=== PATIENT | male | born 1970 | race Caucasian/White ===

== ENCOUNTER 2017-07-23 19:35 | Inpatient (IN) | payer OTHER ==
[~2017-07-23] VITALS: Ht 182.9 cm; Wt 113.4 kg
[2017-07-23] MEDS ORDERED: ALTACE5 M2 PO (19:54)
--- NOTE | 2017-07-23 20:12 | ED GENERAL ADULT ---
History of Present Illness General Chief Complaint: General Adult Stated Complaint: PT WAS SIB DR FOR HIGH BLOOD PRESSURE Source: patient Exam Limitations: no limitations Vital Signs & Intake/Output Vital Signs & Intake/Output Vital Signs Date Time Temp Pulse Resp B/P B/P Pulse O2 O2 Flow FiO2 Mean Ox Delivery Rate 07/26 1136 69 170/120 07/26 0859 76 180/120 07/26 0859 76 180/120 07/26 0642 97.7 76 20 180/120 96 Room Air 07/25 2150 98.1 71 18 172/110 96 Room Air 07/25 2055 70 172/110 07/25 1800 190/122 07/25 1619 70 210/130 07/25 1429 98.1 74 18 170/110 95 Room Air 07/25 1308 174/104 ED Intake and Output 07/26 0000 07/25 1200 Intake Total 600 110 Output Total Balance 600 110 Intake, IV 10 Intake, Oral 600 100 Patient 113.398 kg Weight Allergies Coded Allergies: No Known Allergies (07/23/17) Reconcile Medications Labetalol HCl 300 MG TABLET 1 TAB PO BID HYPERTENSION Lisinopril 40 MG TABLET 1 TAB PO DAILY HTN Ramipril (Altace) 5 MG CAPSULE 1 CAP PO DAILY HTN (Reported) Triage Note: PER PT WENT TO WALK IN FOR A CUT AND BP WAS TOO HIGH, HX OF HTN BUT HAS NOT TAKEN MEDS IN 6 MONTHS SINCE COMING TO [facility]. CUT RT INDEX FINGER AT WORK, ON SLICER. BLEEDING CONTROILLED Triage Nurses Notes Reviewed? yes HPI: 46M PMH HTN (non-compliant with meds for 1.5 years), went to urgent care today after he cut his finger at work receiving 7 sutures, was sent here after found to have BP >200/100. BP in triage was 263/130. Patient is completely asymptomatic and feels well. He denies lightheadedness, headache, dizziness, vision changes, hearing changes, sore throat, chest pain, SOB, palpitations, diarrhea, dysuria, anuria, diarrhea. He has no cardiac history and has an active job. Past History Travel History Traveled to [place] past 21 day No Medical History Any Pertinent Medical History? see below for history Neurological: NONE EENT: NONE Cardiovascular: hypertension Respiratory: NONE Gastrointestinal: NONE Hepatic: NONE Renal: NONE Musculoskeletal: NONE Psychiatric: NONE Endocrine: NONE Surgical History Surgical History: non-contributory Psychosocial History What is your primary language Ukrainian Tobacco Use: Never used Family History Hx Contributory? No Review of Systems Review of Systems Constitutional: Reports: no symptoms. EENTM: Reports: no symptoms. Respiratory: Reports: no symptoms. Cardiovascular: Reports: no symptoms. GI: Reports: no symptoms. Genitourinary: Reports: no symptoms. Musculoskeletal: Reports: no symptoms. Skin: Reports: no symptoms. Neurological/Psychological: Reports: no symptoms. Hematologic/Endocrine: Reports: no symptoms. Immunologic/Allergic: Reports: no symptoms. All Other Systems: Reviewed and Negative Physical Exam Physical Exam General Appearance: well developed/nourished, no apparent distress Head: atraumatic, normal appearance Eyes: Bilateral: normal appearance. Ears, Nose, Throat: normal pharynx, normal ENT inspection, hearing grossly normal Neck: normal inspection, supple, full range of motion Respiratory: normal breath sounds, chest non-tender, no respiratory distress Cardiovascular: regular rate/rhythm Gastrointestinal: soft, non-tender Back: normal inspection, normal range of motion Extremities: normal inspection, normal range of motion Neurologic/Psych: awake, alert, oriented x 3, normal mood/affect Skin: intact, normal color, warm/dry Core Measures ACS in differential dx? No CVA/TIA Diagnosis: No Sepsis Present: No Sepsis Focused Exam Completed? No Progress Differential Diagnoses I considered the following diagnoses in my evaluation of the patient: hypertensive urgency/emergency/crisis, scleroderma renal crisis, ACS, stroke, aneurysm, dissection, pheochromocytoma. Plan of Care: Orders Procedure Date/time Status Change service to 07/26 0814 Active Vital Signs 07/25 183 Active Teach/Educate 07/25 183 Active Pain Treatment and Response 07/25 183 Active Nutritional Intake, Monitor 07/25 183 Active Isolation 07/25 183 Active Intake & Output 07/25 183 Active Patient Care Conference 07/25 183 Active Activity/Ambulation 07/25 183 Active Admit to inpatient 07/25 1556 Active Current Medications Sig/Afshin Start time Last Medication Dose Stop Time Status Admin Lisinopril 40 MG DAILY 07/26 1000 AC 07/26 (Prinivil) 0859 Labetalol HCl 300 MG BID 07/25 2200 AC 07/26 (Trandate) 0859 Enoxaparin Sodium 40 MG DAILY 07/24 1000 AC 07/26 (Lovenox) 0900 Initial ED EKG: normal sinus rhythm, no ST T wave changes Departure Departure Disposition: STILL A PATIENT Condition: Stable Clinical Impression Primary Impression: Hypertensive urgency Referrals: Patient Has No Primary Care Dr (PCP/Family) Departure Forms: Customer Survey General Discharge Information Industrial Accident Report Prescriptions: Current Visit Scripts Lisinopril 1 TAB PO DAILY #30 TAB Labetalol HCl 1 TAB PO BID #60 TAB Observation Note Spoke With: Joon COSME,Ovidio Physician Advisor Notified: CHRISTIANO COSME,LUIS Quan Place Patient In: Non-ED OBS Care Area Rationale for Observation: My rational for observation is as follows hypertensive urgency 260/140 with concern for stroke, resistant to Labetalol IV x2. Will bring in as observation for cardiology consult, IV anti-hypertensives, and slow regulation of BP that should resolve within 23 hours.. Critical Care Note Critical Care Note Critical Care Time: 30-74 min
[2017-07-23 20:26] LABS: ABSOLUTE BASOPHIL COUNT 0 /CUMM (0.0-0.2); ABSOLUTE EOSINOPHIL COUNT 0.2 /CUMM (0.0-0.7); ABSOLUTE GRANULOCYTE CT 5.8 /CUMM (1.4-6.5); ABSOLUTE LYMPH COUNT 2.2 /CUMM (1.2-3.4); ABSOLUTE MONOCYTE COUNT 0.7 /CUMM (0.10-0.60); BASOPHIL % 0.4 % (0.0-2.0); EOSINOPHIL % 2.5 % (0-5); GRANULOCYTE % 65.3 % (42.2-75.2); HEMATOCRIT 47.2 % (42-52); MEAN CORPUSCULAR HGB 28.7 PG (27.0-31.0); MEAN CORPUSCULAR HGB CONC 34.3 G/DL (33.0-37.0); MEAN CORPUSCULAR VOLUME 83.6 FL (80.0-94.0); MEAN PLATELET VOLUME 10.1 FL (7.4-10.4); PLATELET COUNT 191 /CUMM (130-400); RBC DISTRIBUTION WIDTH 14.1 % (11.5-14.5); RED BLOOD CELL CT 5.64 /CUMM (4.70-6.10); WHITE BLOOD CELL COUNT 8.9 /CUMM (4.8-10.8)
--- NOTE | 2017-07-23 22:12 | History & Physical ---
Damien Pena MD 07/23/17 2211: General Information and HPI MD Statement: I have seen and personally examined LUPILLO ESCALERA and documented this H&P. The patient is a 46 year old M who presented with a patient stated chief complaint of [hypertensive urgency]. Source of Information: patient Exam Limitations: no limitations History of Present Illness: Patient is a 46-year-old male with a PMH significant for hypertension but has been off of medication ramipril and Allopurinol (questionable reason) since immigrating to the over one year ago from [facility]. Patient presents to the ED today being referred by urgent care for hypertension. Patient suffered a laceration of his right second digit of his hand at work today and upon presentation to urgent care and was found to be in hypertensive urgency. Patient states that he felt in his usual state of health. He denies any headache, visual changes, eye pain, lightheadedness, dizziness, or loss of consciousness, chest pain, palpitations, nausea, vomiting, numbness, tingling, abdominal pain. Allergies/Medications Allergies: Coded Allergies: No Known Allergies (07/23/17) Home Med list Labetalol HCl 300 MG TABLET 1 TAB PO BID HYPERTENSION Lisinopril 40 MG TABLET 1 TAB PO DAILY HTN Ramipril (Altace) 5 MG CAPSULE 1 CAP PO DAILY HTN (Reported) Past History Travel History Traveled to [place] past 21 day No Medical History Neurological: NONE EENT: NONE Cardiovascular: hypertension Respiratory: NONE Gastrointestinal: NONE Hepatic: NONE Renal: NONE Musculoskeletal: NONE Psychiatric: NONE Endocrine: NONE Surgical History Surgical History: non-contributory Past Family/Social History Family History Relations & Conditions if any FATHER FH: HTN (hypertension) FH: [place] (myocardial infarction), Onset: 50-60. Psychosocial History Where do you live? Home Who Do You Live With? self Services at Home: None Primary Language: Persian Smoking Status: Never Smoked ETOH Use: occasional use Illicit Drug Use: denies illicit drug use Functional Ability ADLs Independent: dressing, eating, toileting, bathing. Ambulation: independent IADLs Independent: shopping, housework, finances, food prep, telephone, transportation , medication admin. Review of Systems Review of Systems Constitutional: Denies: chills, diaphoresis, fever, malaise. EENTM: Denies: blurred vision, double vision, visual changes, eye pain. Cardiovascular: Denies: chest pain, edema, orthopena, palpitations, syncope. Respiratory: Denies: cough, hemoptysis, orthopnea, short of breath, wheezing. GI: Denies: abdominal pain, constipation, diarrhea, melena, nausea, bloody stool, vomiting. Genitourinary: Reports: no symptoms. Musculoskeletal: Reports: no symptoms. Skin: Denies: rash. Exam & Diagnostic Data Last 24 Hrs of Vital Signs/I&O Vital Signs Date Time Temp Pulse Resp B/P B/P Pulse O2 O2 Flow FiO2 Mean Ox Delivery Rate 07/24 0114 74 164/106 07/24 0032 97.6 79 20 210/132 96 Room Air 07/24 0011 97.9 77 18 184/100 98 Room Air 07/23 2313 98.4 82 18 204/124 07/23 2256 98.4 82 18 204124 98 Room Air 07/23 2152 98.0 89 20 234/148 07/23 2149 98.0 89 20 234/148 98 Room Air 07/23 2038 98.4 101 20 234/150 07/23 2038 98.4 101 20 234/150 07/23 2017 262/134 07/23 1947 98.0 78 22 210/108 98 Intake & Output 07/24 0800 07/24 0000 07/23 1600 Intake Total 0 Output Total Balance 0 Intake, Oral 0 Patient 250 lb 250 lb Weight Physical Exam General Appearance Alert, Oriented X3, Cooperative, No Acute Distress Skin Temp/Moisture Exam: Warm/Dry HEENT Atraumatic, PERRLA, EOMI, Mucous Membr. moist/pink Neck No JVD, +2 Carotid Pulse wo Bruit Cardiovascular Regular Rate, Normal S1, Normal S2 Lungs Clear to Auscultation, Normal Air Movement Abdomen Normal Bowel Sounds, Soft, No Tenderness Neurological Normal Speech, Strength at 5/5 X4 Ext, Normal Tone, Sensation Intact, Cranial Nerves 3-12 NL Extremities No Clubbing, No Cyanosis, 1-2+ pitting edema of the distal LEs bilaterally Vascular Normal Pulses, Pulses Symmetrical Last 24 Hrs of Labs/Delfino: Laboratory Tests 07/24/17 0325: Troponin I Pending 07/24/17324: Sodium Pending, Potassium Pending, Chloride Pending, Carbon Dioxide Pending, Anion Gap Pending, BUN Pending, Creatinine Pending, BUN/Creatinine Ratio Pending , D-Dimer High Sensitivty Pending, CBC w Diff Pending, WBC Pending, RBC Pending, Hgb Pending, Hct Pending, MCV Pending, MCH Pending, MCHC Pending, RDW Pending, Plt Count Pending, MPV Pending 07/23/172009: Anion Gap 12, Estimated GFR > 60, BUN/Creatinine Ratio 13.3, Glucose 165 H, Hemoglobin A1c Pending, Calcium 10.2, Total Bilirubin 0.6, Direct Bilirubin 0.3, AST 25, ALT 48, Alkaline Phosphatase 61, Troponin I 0.02, Total Protein 7.3, Albumin 4.5, Triglycerides 322 H, Cholesterol 202 H, LDL Cholesterol, Calc 100 , HDL Cholesterol 38 L, Cholesterol/HDL Ratio 5 H, Amylase 50, Lipase 155, TSH 2.290, Free T4 1.41, CBC w Diff NO MAN DIFF REQ, RBC 5.64, MCV 83.6, MCH 28.7, MCHC 34.3, RDW 14.1, MPV 10.1, Gran % 65.3, Lymphocytes % 24.2, Monocytes % 7.6, Eosinophils % 2.5, Basophils % 0.4, Absolute Granulocytes 5.8, Absolute Lymphocytes 2.2, Absolute Monocytes 0.7 H, Absolute Eosinophils 0.2, Absolute Basophils 0 Diagnostic Data EKG Results RBBB, S1Q3T3, questionable ST depressions in the precordial leads Assessment/Plan Assessment: Patient is a 46-year-old male with a PMH significant for hypertension but has been off of medication for over a year, was on ramipril previously. 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 Patient received labetalol 300 mg by mouth, labetalol 10 mg IV 2 and enalaprilat 1.25 mg IV in the ED. Problem list #Hypertensive urgency Plan -Placed in observation on telemetry. -continuous telemetry monitoring -Rule out ACS with serial troponins and EKGs -Cardiology consult in the morning -Give referral for PCP prior to discharge -Start lisinopril 10 mg by mouth daily, labetalol 200 mg twice a day -Maintain goal BP of 170-180/100-110, over the first several hours of BP management -Heart healthy diet -DVT prophylaxis: Lovenox,ALPS -CODE STATUS: Full code As Ranked By This Provider Problem List: 1. Hypertensive urgency Core Measures/Misc (02/14) Acute Coronary Syndrome ACS Diagnosis: No Congestive Heart Failure Congestive Heart Failure Diagnosis No Cerebrovascular Accident CVA/TIA Diagnosis: No VTE (View Protocol) VTE Risk Factors Age>40 No Mechanical VTE Prophylaxis d/t N/A MechProphylax Ordered No VTE Pharm Prophylaxis d/t NA PharmProphylax ordered Sepsis (View protocol) Sepsis Present: No Fern Bal 07/23/17 7512: Resident Review Statement Resident Statement: examined this patient, discussed with editing internship, agreed with editing internship, reviewed images Other Findings: is a 46 yo man with PMHx. of HTN, and Gout presented to ED after he was seen at a walk in clinic for finger injury s/p 7 sutures, found to have elevated BP so referred to our ED for more evaluation. At Walk in clinic his BP> 200/100 mmgh, at our triage it was 260/130mmgh, he is completely asymptomatic except for mild pain in the injured finger. He was diagnosed with HTN at [facility], he was on ACEI but stopped taking his medicine since he came in to [place] about 1.5 years ago. At ED he was given Labetalol 300mg PO once and 20mg IV, he also received Enalaprite 1.25 iV once with still elevated BP. Will admitt the patient under observation at telemetry for hypertensive urgency, will manage his BP with oral Labetalol and oral CCB, aim to decrease BP not more than 25% within the first 24 hours. given his young age will order doppler US to r/o renal artery stenosis ( He mentioned that he had an US of the kidney at [facility] with no abnormalities detected). No needs to check Metanephrine as his clinical picture does not correlate with Pheochromocytoma. His EKG showed Sins tachy, with left ventricular hypertrophy, RBBB, LAD and what seems to be ST depression at anterolateral leads, he denies any chest pain, will repeat Troponin and EKG at 3am, we will also place a cardiology consult at am. DVT ppx SC Lovenox Full code Joon COSME, [facility] 07/24/17 0324: Attending MD Review Statement Attending Statement Attending MD Statement: examined this patient, discuss w/resident/PA/ECHOCARDIOGRAPHY TECH, agreed w/resident/PA/ECHOCARDIOGRAPHY TECH, reviewed images, amended to note Attending Assessment/Plan: 46 yo M who moved to [facility] from [place] about 1.5 years ago, has a h/o HTN but has not been taking any medications for past 1.5 years and has not established care with a PCP yet, is here for evalaution of elevated BP. He went to an Urgent care today after he cut his finger at work receiving 7 sutures and was sent to the ER as his BP was >200/100. He is asymptomatic, denies headache, vision changes, chest pain, palpitations, dyspnea or lightheadedness. He was previously on ramipril and allopurinol that were prescribed to him in [place]. He has undergone a stress test then that was negative. No cardiac history. He does not smoke, occasionally uses alcohol, denies drug use. His father is from an acute MD at age 56. He received labetalol 300 mg PO, IV labetalol 10 mg x 2 and Vasotec 1.25 mg once in the ER, BP slowly trending down 234/148 --> 204/124 -->184/100. Exam as above. Labs: troponin negative, glucose 165. EKG: sinus tachycardia, RBBB, LVH, Qtc 493 (no old EKG). Assessment and plan: 1. Hypertensive urgency - asymptomatic 2. Medication noncompliance 3. EKG with RBBB and nonspecific changes 4. Right hand index finger laceration s/p suture - 23 hour observation on Telemetry - Goal reduction if mean arterial pressure by 25% SBP ~ 170-180's - Initiate labetolol 200 BID and lisinopril 10 mg daily in AM - Serial EKG and troponin to rule out ACS - Obtain Echo and Cardio consult - Check lipid panel, TSH, free T4, HbA1c - Renal doppler to rule out MIRA - Referral to PCP upon discharge - Outpatient follow up for right hand index finger stitch removal in 7-10 days. - Emphasize importance of medication compliance DVT ppx Lovenox. Full code Observation Initial Note - I have personally examined LUPILLO ESCALERA on 07/24/17 at 0324. The disposition of LUPILLO ESCALERA is uncertain at this time and before a determination can be made, he requires a period of observation for the following reasons [Hypertensive urgency]
[2017-07-24] VITALS (7 sets, daily range): BP systolic 150–210; BP diastolic 100–132
[2017-07-24 03:38] LABS: ABSOLUTE BASOPHIL COUNT 0 /CUMM (0.0-0.2); ABSOLUTE EOSINOPHIL COUNT 0.2 /CUMM (0.0-0.7); ABSOLUTE GRANULOCYTE CT 6.1 /CUMM (1.4-6.5); ABSOLUTE LYMPH COUNT 2.4 /CUMM (1.2-3.4); ABSOLUTE MONOCYTE COUNT 0.7 /CUMM (0.10-0.60); BASOPHIL % 0.3 % (0.0-2.0); EOSINOPHIL % 2.1 % (0-5); GRANULOCYTE % 64.6 % (42.2-75.2); HEMATOCRIT 44.1 % (42-52); MEAN CORPUSCULAR HGB 28.3 PG (27.0-31.0); MEAN CORPUSCULAR HGB CONC 33.6 G/DL (33.0-37.0); MEAN CORPUSCULAR VOLUME 84.3 FL (80.0-94.0); MEAN PLATELET VOLUME 9.6 FL (7.4-10.4); PLATELET COUNT 184 /CUMM (130-400); RBC DISTRIBUTION WIDTH 14.5 % (11.5-14.5); RED BLOOD CELL CT 5.23 /CUMM (4.70-6.10); WHITE BLOOD CELL COUNT 9.4 /CUMM (4.8-10.8)
--- NOTE | 2017-07-24 12:51 | Cons- Cardiology ---
General Information and HPI Consulting Request Date of Consult: 07/24/17 Requested By: Joon COSME,Ovidio Reason for Consult: Hypertensive urgency Source of Information: patient, old records Exam Limitations: no limitations History of Present Illness: The patient is a very nice 46-year-old male. His past medical history significant for hypertension. He was previously treated with [place], however, since immigrating to the [place] one year ago from [place], the patient has been off of the medications. The patient presented to the emergency room yesterday after being referred by urgent care for hypertension which was identified after the patient arrived for treatment of a laceration of his right second digit while at work. At the urgent care Center he was noted to be markedly hypertensive. He denied any cardiovascular symptoms. The patient was made for treatment of his high blood pressure and further evaluation. Allergies/Medications Allergies: Coded Allergies: No Known Allergies (07/23/17) Home Med List: Ramipril (Altace) 5 MG CAPSULE 1 CAP PO DAILY HTN (Reported) Current Medications: Current Medications Sig/Afshin Start time Last Medication Dose Route Stop Time Status Admin Aspirin 325 MG ONCE ONE 07/24 0445 DC 07/24 PO 07/24 0446 0456 Enalaprilat 1.25 MG ONCE ONE 07/235 DC 07/23 IV 07/23 2315 2313 Enalaprilat 0 .STK-MED ONE 07/23 2311 DC IV Enoxaparin Sodium 40 MG DAILY 07/24 1000 AC 07/24 SC 0912 Influenza Virus 0.5 ML ONCE ONE 07/24 0045 DC Vaccine IM 07/24 0046 Labetalol HCl 200 MG BID 07/24 1000 AC 07/24 PO 0911 Labetalol HCl 10 MG ONCE ONE 07/23 214 DC 07/23 IV 07/23 2145 215 Labetalol HCl 0 .STK-MED ONE 07/23 2034 DC IV Labetalol HCl 10 MG ONCE ONE 07/23 2029 DC 07/23 IV 07/23 Labetalol HCl 300 MG ONCE ONE 07/23 1999 DC 07/23 PO 07/23 Lisinopril 10 MG DAILY 07/24 1000 AC 07/24 PO 0912 Sodium Chloride 250 ML BOLUS ONE 07/24 0445 DC 07/24 IV 07/24 0714 0456 Past History Travel History Traveled to [place] past 21 day No Medical History Blood Transfusion Hx: No Neurological: NONE EENT: NONE Cardiovascular: hypertension Respiratory: NONE Gastrointestinal: NONE Hepatic: NONE Renal: NONE Musculoskeletal: NONE Psychiatric: NONE Endocrine: NONE Cancer(s): NONE Surgical History Surgical History: non-contributory Family History Relations & Conditions If Any: FATHER FH: HTN (hypertension) FH: [place] (myocardial infarction), Onset: 50-60. Psychosocial History Where Do You Live? Home Who Do You Live With? self Services at Home: None Primary Language: Uzbek Smoking Status: Never Smoked ETOH Use: occasional use Illicit Drug Use: denies illicit drug use Functional Ability ADLs Independent: dressing, eating, toileting, bathing. Ambulation: independent IADLs Independent: shopping, housework, finances, food prep, telephone, transportation , medication admin. Exam & Diagnostic Data Vital Signs and I&O Vital Signs Date Time Temp Pulse Resp B/P B/P Pulse O2 O2 Flow FiO2 Mean Ox Delivery Rate 07/24 1040 180/118 07/24 0912 78 190/118 07/24 0911 78 190/118 07/24 0654 97.8 79 20 152/100 97 Room Air 07/24 0315 77 150/100 07/24 0114 74 164/106 07/24 0032 97.6 79 20 210/132 96 Room Air 07/24 0011 97.9 77 18 184/100 98 Room Air 07/23 2313 98.4 82 18 204/124 07/23 2255 98.4 82 18 204/124 98 Room Air 07/23 2152 98.0 89 20 234/148 07/23 2149 98.0 89 20 234/148 98 Room Air 07/23 2038 98.4 101 20 234/150 07/23 2038 98.4 101 20 234/150 07/23 2018 262/134 07/23 1947 98.0 78 22 210/108 98 Intake & Output 07/24 1600 07/24 0800 07/24 0000 07/23 1600 07/23 0000 Intake Total 350 0 Output Total 0 Balance 350 0 Intake, IV 250 Intake, Oral 100 0 Output, Urine 0 Patient 250 lb 250 lb Weight Physical Exam: General Appearance Alert, Oriented X3, Cooperative, No Acute Distress Skin Temp/Moisture Exam: Warm/Dry HEENT Atraumatic, PERRLA, EOMI, Mucous Membr. moist/pink Neck No JVD, +2 Carotid Pulse wo Bruit, supple Cardiovascular Regular Rate, Normal S1, Normal S2, soft S4, 1/6 systolic murmur Lungs Clear to Auscultation, and percussion bilaterally Abdomen Normal Bowel Sounds, Soft, No Tenderness Neurological Normal/nonfocal Extremities No Clubbing, No Cyanosis, 1-2+ pitting edema of the distal LEs bilaterally Vascular Normal Pulses, Pulses Symmetrical Labs/Delfino Results: Laboratory Tests 07/24 07/24 0325 0325 Chemistry Sodium (137 - 145 mmol/L) 141 Potassium (3.5 - 5.1 mmol/L) 4.1 Chloride (98 - 107 mmol/L) 104 Carbon Dioxide (22 - 30 mmol/L) 26 Anion Gap (5 - 16) 11 BUN (9 - 20 mg/dL) 15 Creatinine (0.7 - 1.2 mg/dL) 1.1 Estimated GFR (>60 ml/min) > 60 BUN/Creatinine Ratio (7 - 25 %) 13.6 Troponin I (<0.11 ng/ml) 0.03 Coagulation D-Dimer High Sensitivty (0 - 243 ng/ml) < 200 Hematology CBC w Diff NO MAN DIFF REQ WBC (4.8 - 10.8 /CUMM) 9.4 RBC (4.70 - 6.10 /CUMM) 5.23 Hgb (14.0 - 18.0 G/DL) 14.8 Hct (42 - 52 %) 44.1 MCV (80.0 - 94.0 FL) 84.3 MCH (27.0 - 31.0 PG) 28.3 MCHC (33.0 - 37.0 G/DL) 33.6 RDW (11.5 - 14.5 %) 14.5 Plt Count (130 - 400 /CUMM) 184 MPV (7.4 - 10.4 FL) 9.6 Gran % (42.2 - 75.2 %) 64.6 Lymphocytes % (20.5 - 51.1 %) 25.2 Monocytes % (1.7 - 9.3 %) 7.8 Eosinophils % (0 - 5 %) 2.1 Basophils % (0.0 - 2.0 %) 0.3 Absolute Granulocytes (1.4 - 6.5 /CUMM) 6.1 Absolute Lymphocytes (1.2 - 3.4 /CUMM) 2.4 Absolute Monocytes (0.10 - 0.60 /CUMM) 0.7 H Absolute Eosinophils (0.0 - 0.7 /CUMM) 0.2 Absolute Basophils (0.0 - 0.2 /CUMM) 0 07/23 2009 Chemistry Sodium (137 - 145 mmol/L) 142 Potassium (3.5 - 5.1 mmol/L) 4.1 Chloride (98 - 107 mmol/L) 102 Carbon Dioxide (22 - 30 mmol/L) 28 Anion Gap (5 - 16) 12 BUN (9 - 20 mg/dL) 16 Creatinine (0.7 - 1.2 mg/dL) 1.2 Estimated GFR (>60 ml/min) > 60 BUN/Creatinine Ratio (7 - 25 %) 13.3 Glucose (65 - 99 mg/dL) 165 H Hemoglobin A1c (4.2 - 5.8 %) Pending Calcium (8.4 - 10.2 mg/dL) 10.2 Total Bilirubin (0.2 - 1.3 mg/dL) 0.6 Direct Bilirubin (< 0.4 mg/dL) 0.3 AST (17 - 59 U/L) 25 ALT (21 - 72 U/L) 48 Alkaline Phosphatase (< 127 U/L) 61 Troponin I (<0.11 ng/ml) 0.02 Total Protein (6.3 - 8.2 g/dL) 7.3 Albumin (3.5 - 5.0 g/dL) 4.5 Triglycerides (<150 mg/dL) 322 H Cholesterol (< 200 MG/DL) 202 H LDL Cholesterol, Calc (65 - 129 mg/dL) 100 HDL Cholesterol (40 - 60 mg/dL) 38 L Cholesterol/HDL Ratio (0.00 - 4.88 %) 5 H Amylase (30 - 110 U/L) 50 Lipase (23 - 300 U/L) 155 TSH (0.270 - 4.200 uIU/mL) 2.290 Free T4 (0.64 - 1.79 ng/dL) 1.41 Hematology CBC w Diff NO MAN DIFF REQ WBC (4.8 - 10.8 /CUMM) 8.9 RBC (4.70 - 6.10 /CUMM) 5.64 Hgb (14.0 - 18.0 G/DL) 16.2 Hct (42 - 52 %) 47.2 MCV (80.0 - 94.0 FL) 83.6 MCH (27.0 - 31.0 PG) 28.7 MCHC (33.0 - 37.0 G/DL) 34.3 RDW (11.5 - 14.5 %) 14.1 Plt Count (130 - 400 /CUMM) 191 MPV (7.4 - 10.4 FL) 10.1 Gran % (42.2 - 75.2 %) 65.3 Lymphocytes % (20.5 - 51.1 %) 24.2 Monocytes % (1.7 - 9.3 %) 7.6 Eosinophils % (0 - 5 %) 2.5 Basophils % (0.0 - 2.0 %) 0.4 Absolute Granulocytes (1.4 - 6.5 /CUMM) 5.8 Absolute Lymphocytes (1.2 - 3.4 /CUMM) 2.2 Absolute Monocytes (0.10 - 0.60 /CUMM) 0.7 H Absolute Eosinophils (0.0 - 0.7 /CUMM) 0.2 Absolute Basophils (0.0 - 0.2 /CUMM) 0 Diagnostic Data EKG Results Normal sinus rhythm; left atrial under maladies; right bundle branch block; left Assessment/Plan Assessment/Plan Assessment: 1. Hypertensive urgency 2. Medication noncompliance 3. Mild hyperglycemia 4. Hyperlipidemia 5. Abnormal ECG with right bundle-branch block and nonspecific ST-T changes Recommendations: -Today, the patient's blood pressure remains significantly elevated but is improved since admission. His systolic pressure is ranging between 160-180. -For now, I would continue his current medications of labetalol 200 mg twice a day and lisinopril 10 mg daily. Continue to monitor blood pressure over the next 24 hours. -Reassess in the morning and readjust medications at that time if indicated. -Echocardiogram pending -Please check a fasting lipid profile. -At some point, the patient would benefit from further baseline cardiac evaluation as an outpatient. Consult Acknowledgment - Thank you for your consult request.
--- NOTE | 2017-07-24 14:11 | PN- Housestaff ---
Patrick COSME,[facility] 07/24/17 1411: Subjective Follow-up For: Hypertensive urgency Tele-Events Since Last Visit: Normal sinus rhythm with bundle branch block Heart rate 68 to 85. Subjective: Patient resting comfortably denies any chest pain, palpitations, headache, vision changes, numbness or weakness in any part of the body or lightheadedness/ dizziness. Review of Systems Constitutional: Reports: no symptoms. EENTM: Reports: no symptoms. Cardiovascular: Reports: no symptoms. Respiratory: Reports: no symptoms. Gastrointestinal: Reports: no symptoms. Genitourinary: Reports: no symptoms. Musculoskeletal: Reports: no symptoms. Skin: Reports: no symptoms. Neurological/Psychological: Reports: no symptoms. Hematologic/Endocrine: Reports: no symptoms. Immunologic/Allergic: Reports: no symptoms. Objective Last 24 Hrs of Vital Signs/I&O Vital Signs Date Time Temp Pulse Resp B/P B/P Pulse O2 O2 Flow FiO2 Mean Ox Delivery Rate 07/24 1420 97.6 70 20 190/100 93 Room Air 07/24 1040 180/118 07/24 0912 78 190/118 07/24 0911 78 190/118 07/24 0654 97.8 79 20 152/100 97 Room Air 07/24 0315 77 150/100 07/24 0114 74 164/106 07/24 0032 97.6 79 20 210/132 96 Room Air 07/24 0011 97.9 77 18 184/100 98 Room Air 07/23 2313 98.4 82 18 204/124 07/23 2256 98.4 82 18 204/124 98 Room Air 07/23 2152 98.0 89 20 234/148 07/23 2149 98.0 89 20 234/148 98 Room Air 07/23 2038 98.4 101 20 234/150 07/23 2038 98.4 101 20 234/150 07/23 2018 262/134 07/23 1947 98.0 78 22 210/108 98 Intake & Output 07/24 1600 07/24 0800 07/24 0000 Intake Total 400 350 0 Output Total 0 Balance 400 350 0 Intake, IV 250 Intake, Oral 400 100 0 Output, Urine 0 Patient 250 lb 250 lb Weight Physical Exam General Appearance: Alert, Oriented X3, Cooperative, No Acute Distress Skin: No Rashes, No Breakdown Cardiovascular: Regular Rate, Normal S1, Normal S2, No Murmurs Lungs: Clear to Auscultation, Normal Air Movement Abdomen: Normal Bowel Sounds, Soft, No Tenderness Extremities: No Clubbing, No Cyanosis, No Edema, Normal Pulses Current Medications: Current Medications Sig/Afshin Start time Last Medication Dose Route Stop Time Status Admin Aspirin 325 MG ONCE ONE 07/24 0445 DC 07/24 PO 07/24 0446 0456 Enalaprilat 1.25 MG ONCE ONE 07/23 2314 DC 07/23 IV 07/23 2315 231 Enalaprilat 0 .STK-MED ONE 07/23 2311 DC IV Enoxaparin Sodium 40 MG DAILY 07/24 1000 AC 07/24 SC 0912 Influenza Virus 0.5 ML ONCE ONE 07/24 0045 DC Vaccine IM 07/24 0046 Labetalol HCl 200 MG BID 07/24 1000 AC 07/24 PO 0911 Labetalol HCl 10 MG ONCE ONE 07/23 214 DC 07/23 IV 07/23 Labetalol HCl 0 .STK-MED ONE 07/23 2034 DC IV Labetalol HCl 10 MG ONCE ONE 07/23 2029 DC 07/23 IV 07/23 Labetalol HCl 300 MG ONCE ONE 07/23 1999 DC 07/23 PO 07/23 Lisinopril 10 MG DAILY 07/24 1000 AC 07/24 PO 0912 Sodium Chloride 250 ML BOLUS ONE 07/24 444 DC 07/24 IV 07/24 0714 0456 Last 24 Hrs of Lab/Delfino Results Last 24 Hrs of Labs/Mics: Laboratory Tests 07/24/175: Troponin I 0.03 07/24/17324: Anion Gap 11, Estimated GFR > 60, BUN/Creatinine Ratio 13.6, D-Dimer High Sensitivty < 200, CBC w Diff NO MAN DIFF REQ, RBC 5.23, MCV 84.3, MCH 28.3, MCHC 33.6, RDW 14.5, MPV 9.6, Gran % 64.6, Lymphocytes % 25.2, Monocytes % 7.8, Eosinophils % 2.1, Basophils % 0.3, Absolute Granulocytes 6.1, Absolute Lymphocytes 2.4, Absolute Monocytes 0.7 H, Absolute Eosinophils 0.2, Absolute Basophils 0 07/23/172009: Anion Gap 12, Estimated GFR > 60, BUN/Creatinine Ratio 13.3, Glucose 165 H, Hemoglobin A1c Pending, Calcium 10.2, Total Bilirubin 0.6, Direct Bilirubin 0.3, AST 25, ALT 48, Alkaline Phosphatase 61, Troponin I 0.02, Total Protein 7.3, Albumin 4.5, Triglycerides 322 H, Cholesterol 202 H, LDL Cholesterol, Calc 100 , HDL Cholesterol 38 L, Cholesterol/HDL Ratio 5 H, Amylase 50, Lipase 155, TSH 2.290, Free T4 1.41, CBC w Diff NO MAN DIFF REQ, RBC 5.64, MCV 83.6, MCH 28.7, MCHC 34.3, RDW 14.1, MPV 10.1, Gran % 65.3, Lymphocytes % 24.2, Monocytes % 7.6, Eosinophils % 2.5, Basophils % 0.4, Absolute Granulocytes 5.8, Absolute Lymphocytes 2.2, Absolute Monocytes 0.7 H, Absolute Eosinophils 0.2, Absolute Basophils 0 Assessment/Plan Assessment: Patient is a 46-year-old male with a PMH significant for hypertension but has been off of medication for over a year, was on ramipril previously. He was completely asymptomatic, and has not established medical care with a PCP or director labor standards in the [place]. Patient received labetalol 300 mg by mouth, labetalol 10 mg IV 2 and enalaprilat 1.25 mg IV in the ED. Was also given some fluids because of the rapid drop in blood pressure(150/100) after receiving all the medications. Problem list #Hypertensive urgency Plan - Continue to observe on telemetry. - Troponins and EKG 3 negative. - Cardiology consult; appreciate recommendations. - Continue lisinopril 10 mg by mouth daily, labetalol 200 mg twice a day - Maintain goal BP of 170-180/100-110, over the first several hours of BP management. - Renal Doppler ultrasound to rule out renal artery stenosis. - Echocardiogram pending - Abnormal lipid profile; will check fasting lipid panel in a.m. DVT prophylaxis: Lovenox,ALPS CODE STATUS: Full code Problem List: 1. Hypertensive urgency Pain Ratin Pain Location: None Pain Goal: Remain pain free Pain Plan: None Tomorrow's Labs & Rationales: Lipid panel Jatin Amezquita MD 07/24/17 1551: Attending MD Review Statement Attending Statement Attending MD Statement: examined this patient, discuss w/resident/PA/QA SOFTWARE TESTER, agreed w/resident/PA/QA SOFTWARE TESTER, reviewed EMR data (avail) Attending Assessment/Plan: 46 yo M who moved to [facility] from [place] about 1.5 years ago, has a h/o HTN but has not been taking any medications for past 1.5 years and has not established care with a PCP yet, is here for evalaution of elevated BP. He used to take medications in [place] for his high blood pressure.. This morning patient denies specific complaints of chest pain, shortness of breath, lightheadedness, dizziness. No headache. His blood pressure has been steadily declining, although it is still elevated. Assessment and plan: 1. Hypertensive urgency - resolving 2. Medication noncompliance 3. Right hand index finger laceration s/p suture 4. Right bundle branch block with Non specific ST-T changes Patient seen by cardiology will continue with lisinopril 10 mg in the same dose of labetalol. We will obtain echocardiogram. And also get fasting lipid profiles. Patient educated about the importance of following up with the primary care physician. No evidence of acute coronary syndrome. - Patient will need follow-up with primary care physician on discharge. - Outpatient follow up for right hand index finger stitch removal in 7-10 days. - Plan for discharge in the morning.
--- NOTE | 2017-07-24 16:03 | ULTRASOUND REPORT ---
EXAMINATION: US DOPPLER RENAL CLINICAL INFORMATION: Hypertensive urgency. Suspected renal artery stenosis. COMPARISON: None. TECHNIQUE: Real-time imaging of the kidneys and bladder. FINDINGS: The abdominal aorta shows no significant atherosclerotic disease. The pararenal abdominal aorta shows a peak systolic velocity of 98 cm/s. The peak systolic velocities within the proximal mid, distal renal arteries are as follows (centimeters per second): (Some considered increased peak systolic velocity of 180 cm/s as abnormal) Right renal artery: Proximal: 131; mid: 99; distal 92. Left renal artery: Proximal 100; mid 82; distal 89. Renal aortic ratio (RAR): 1.3 on the right and 1.0 on the left (Greater than 3-3.5 is usually considered abnormal) RIGHT KIDNEY: 10.9 x 5.3 x 5.4 cm (SAG x AP x TRV). The kidney is normal in size, contour, and echogenicity. Renal cortical thickness is normal. No calculi or focal parenchymal lesions. No hydronephrosis. LEFT KIDNEY: 12.4 x 5.0 x 4.8 cm (SAG x AP x TRV). The kidney is normal in size, contour, and echogenicity. Renal cortical thickness is normal. No calculi or focal parenchymal lesions. No hydronephrosis. IMPRESSION: No sonographic evidence of renal artery stenosis.
[2017-07-25 06:51] VITALS: BP 176/110
[2017-07-25] MEDS ORDERED: LABETALOL HCL200 M1 PO (07:05)
--- NOTE | 2017-07-25 07:08 | Patient Discharge Instructions ---
Discharge Instructions General Discharge Information You were seen/treated for: High blood pressure due to medication non complaince Watch for these problems: Please return to the ER in case of any chest pain, severe headaches, visual changes, slurred speech, or weakness/numbness in any part of body. Special Instructions: Please take all your medication as prescribed. Please take a low alt diet. Please follow up with your PCP, for further management of BP. Please keep a log of your blood pressure at home. Diet Continue normal diet: Yes Recommended Diet: Heart Healthy, Regular no added salt Activity Full Activity/No Limits: Yes Acute Coronary Syndrome Inclusion Criteria At DC or during hospital stay patient has or had the following: ACS DIAGNOSIS No Discharge Core Measures Meds if any: Prescribed or Continued at Discharge Meds if any: NOT Prescribed or Continued at Discharge Congestive Heart Failure Inclusion Criteria At DC or during hospital stay patient has or had the following: CHF DIAGNOSIS No Discharge Core Measures Meds if any: Prescribed or Continued at Discharge Meds if any: NOT Prescribed or Continued at Discharge Cerebrovascular accident Inclusion Criteria At DC or during hospital stay patient has or had the following: CVA/TIA Diagnosis No Discharge Core Measures Meds if any: Prescribed or Continued at Discharge Meds if any: NOT Prescribed or Continued at Discharge Venous thromboembolism Inclusion Criteria VTE Diagnosis No VTE Type NONE VTE Confirmed by (Test) NONE Discharge Core Measures - Per Current guidelines, there needs to be overlap - treatment for the first 5 days of Warfarin therapy. - If discharged on Warfarin prior to 5 days of - overlap therapy, the patient will need to be - assessed for post discharge needs including - *Post discharge parental anticoagulation - *Warfarin and/or parental anticoagulation education - *Follow up date to check INR post discharge At least 5 days overlap therapy as Inpatient No Meds if any: Prescribed or Continued at Discharge Note: Overlap Therapy is Warfarin and Anticoagulant Meds if any: NOT Prescribed or Continued at Discharge
--- NOTE | 2017-07-25 08:33 | PN-Observation ---
Observation Note Observation Note _ I have personally examined LUPILLO ESCALERA. him disposition is uncertain at this time. Before a determination can be made, he requires continued observation for the following reasons [Severely elevated blood pressure/hypertensive urgency ]. Assessment/Plan Medical Assessment: 46 yo M who moved to [facility] from [facility] about 1.5 years ago, has a h/o HTN but has not been taking any medications for past 1.5 years and has not established care with a PCP yet, is here for evalaution of elevated BP. He went to an Urgent care yesterday after he cut his finger at work receiving 7 sutures and was sent to the ER as his BP was >200/100. He was asymptomatic. Of note, he was previously on ramipril and allopurinol that were prescribed to him in [place]. He has undergone a stress test then that was reportedly negative. Since admission he has received labetalol 300 mg PO, IV labetalol 10 mg x 2 and Vasotec 1.25 mg once in the ER, BP slowly trending down. His EKGs and troponins were negative for an acute coronary event. And he has been reviewed by diesel crane operator Dr. Lovell. Doppler ultrasound for renal artery stenosis was negative. His blood pressure today is still elevated at 180/120 mmHg. We'll adjust his anti-hypertensive regimen and reassess him later today for possible discharge. Problems 1. Hypertensive urgency - asymptomatic 2. Medication noncompliance 3. EKG with RBBB and nonspecific changes 4. Right hand index finger laceration s/p suture Plan 1. Hypertensive urgency - asymptomatic * Increase by mouth lisinopril to 20 mg daily today * Continue by mouth labetalol 200 mg twice a day * Cardiology input appreciated * Awaiting echocardiogram report * Fasting lipid panel this morning is improved with LDL 105, but HDL is low at 33 * Recommend lifestyle modification for cholesterol * Follow-up hemoglobin A1c * A blood pressure is in acceptable range can discharge patient later today 2. Medication noncompliance * Patient has been counseled 3. EKG with RBBB and nonspecific changes * Cardiology input appreciated * Follow-up echocardiogram and follow-up with cardiology as outpatient for further evaluation 4. Right hand index finger laceration s/p suture * Follow-up with urgent care center for suture removal in 10 days time ADDENDUM at 15:37 on 07/25/17 Patients blood pressure remains elevated at 170/110 mmhg after increasing lisinopril to 20 mg daily. Case discussed with oil field caser Michel and Attending, Dr. Amezquita. Will convert patient to full admission and continue adjusting blood pressure medications for optimal control. Increase labetalol to 300 mg BID as per cardiology. Problem List: 1. Hypertensive urgency DVT/Prophylaxis: mechanical Subjective Follow-up For: Severely elevated blood pressure and hypertensive urgency Complaints: no complaints Tele-Events Since Last Visit: Sinus rhythm. Heart rate 60-80 bpm. First degree heart block with few PVCs. Subjective: The patient feels well today. He has no complaints. He denies chest pains, palpitations, shortness of breath or lightheadedness. He has no localized weakness or abnormal sensations. Review of Systems Constitutional: Denies: chills, fever, weakness. EENTM: Denies: blurred vision, double vision, throat pain. Cardiovascular: Denies: chest pain, edema, palpitations, syncope. Respiratory: Denies: cough, short of breath. Gastrointestinal: Denies: abdominal pain, diarrhea, changes in stool. Genitourinary: Denies: frequency, hematuria, hesitation. Objective Last 24 Hrs of Vital Signs/I&O Vital Signs Date Time Temp Pulse Resp B/P B/P Pulse O2 O2 Flow FiO2 Mean Ox Delivery Rate 07/25 0854 81 182/120 07/25 0854 81 182/120 07/25 0651 98.2 81 18 176/110 95 Room Air 07/24 2201 98.6 75 18 162/112 92 Room Air 07/24 2128 78 188/110 07/24 1420 97.6 70 20 190/100 93 Room Air 07/24 1040 180/118 Intake & Output 07/25 1600 07/25 0800 07/25 0000 Intake Total 110 680 Output Total Balance 110 680 Intake, IV 10 Intake, Oral 100 680 Physical Exam General Appearance: Alert, Oriented X3, Cooperative, No Acute Distress Skin: No Rashes Skin Temp/Moisture Exam: Warm/Dry Sepsis Skin Exam (color): Normal for Ethnicity HEENT: Atraumatic, PERRLA, EOMI, Mucous Membr. moist/pink Neck: Supple, No JVD, No thryomegaly Lymphatic: Cervical nl Cardiovascular: Regular Rate, Normal S1, Normal S2, No Murmurs Lungs: Clear to Auscultation, Normal Air Movement Abdomen: Normal Bowel Sounds, Soft, No Tenderness, No Hepatospenomegaly, No Masses Neurological: Normal Speech, Strength at 5/5 X4 Ext, Normal Tone, Sensation Intact, Cranial Nerves 3-12 NL Extremities: No Edema, Normal Pulses (dorsalis pedis) Current Medications: Current Medications Sig/Afshin Start time Last Medication Dose Route Stop Time Status Admin Enoxaparin Sodium 40 MG DAILY 07/24 1000 AC 07/25 SC 0855 Labetalol HCl 200 MG BID 07/24 1000 AC 07/25 PO 0854 Lisinopril 20 MG DAILY 07/26 1000 AC PO Lisinopril 10 MG ONCE ONE 07/25 1015 DC PO 07/25 1016 Lisinopril 10 MG DAILY 07/24 1000 DC 07/25 PO 0854 Last 24 Hrs of Labs/Mics: Laboratory Tests 07/25/17 0625: Triglycerides 114, Cholesterol 160, LDL Cholesterol, Calc 105, HDL Cholesterol 33 L, Cholesterol/HDL Ratio 5 H
--- NOTE | 2017-07-25 13:52 | PN- Att Addend ---
Attending Addendum Attending Brief Note 46 yo M who moved to [facility] from [place] about 1.5 years ago, has a h/o HTN but has not been taking any medications for past 1.5 years and has not established care with a PCP yet, is here for evalaution of elevated BP. He used to take lisinopril 5 mg once daily in [place] for his high blood pressure.. This morning patient denies specific complaints of chest pain, shortness of breath, lightheadedness, dizziness. No headache. His blood pressure has been steadily declining, although it is still elevated. Assessment and plan: 1. Hypertensive urgency - resolving 2. Medication noncompliance 3. Right hand index finger laceration s/p suture 4. Right bundle branch block with Non specific ST-T changes Patient seen by cardiology will increase the dose of lisinopril to 20 mg in the same dose of labetalol. Will consider addition of chlorthalidone. We'll follow up on results of echocardiogram. Patient educated about the importance of following up with the primary care physician. No evidence of acute coronary syndrome. - Patient will need follow-up with primary care physician on discharge. - Outpatient follow up for right hand index finger stitch removal in 7-10 days. - Plan for discharge possibly later today depending upon the trend in the blood pressure and will touch base with cardiology. Patient very eager to go home.
--- NOTE | 2017-07-25 14:08 | PN- Cardiology ---
Subjective Subjective: The patient is sleeping quietly. No new symptoms or issues. Rhythm stable. Blood pressure remains elevated though improved since admission. Objective Vital Signs and I&Os Vital Signs Date Time Temp Pulse Resp B/P B/P Pulse O2 O2 Flow FiO2 Mean Ox Delivery Rate 07/25 1308 174/104 07/25 0854 81 182/120 07/25 0854 81 182/120 07/25 0651 98.2 81 18 176/110 95 Room Air 07/24 2201 98.6 75 18 162/112 92 Room Air 07/24 2128 78 188/110 07/24 1420 97.6 70 20 190/100 93 Room Air Intake & Output 07/25 1600 07/25 0800 07/25 0000 07/24 1600 07/24 0800 07/24 0000 Intake Total 110 680 400 350 0 Output Total 0 Balance 110 680 400 350 0 Intake, IV 10 250 Intake, Oral 100 680 400 100 0 Output, Urine 0 Patient 250 lb 250 lb Weight Physical Exam: General Appearance Alert, Oriented X3, Cooperative, No Acute Distress Skin Temp/Moisture Exam: Warm/Dry HEENT Atraumatic, PERRLA, EOMI, Mucous Membr. moist/pink Neck No JVD, +2 Carotid Pulse wo Bruit, supple Cardiovascular Regular Rate, Normal S1, Normal S2, soft S4, 1/6 systolic murmur Lungs Clear to Auscultation, and percussion bilaterally Abdomen Normal Bowel Sounds, Soft, No Tenderness Neurological Normal/nonfocal Extremities No Clubbing, No Cyanosis, 1+ pitting edema of the distal LEs bilaterally Vascular Normal Pulses, Pulses Symmetrical Current Medications: Current Medications Sig/Afshin Start time Last Medication Dose Route Stop Time Status Admin Enoxaparin Sodium 40 MG DAILY 07/24 1000 AC 07/25 SC 0855 Labetalol HCl 200 MG BID 07/24 1000 AC 07/25 PO 0854 Lisinopril 20 MG DAILY 07/26 1000 AC PO Lisinopril 10 MG ONCE ONE 07/25 1015 DC 07/25 PO 07/25 1016 1308 Lisinopril 10 MG DAILY 07/24 1000 DC 07/25 PO 0854 Results Last 48 Hrs of Labs/Mics: Laboratory Tests 07/25/17 0625: Triglycerides 114, Cholesterol 160, LDL Cholesterol, Calc 105, HDL Cholesterol 33 L, Cholesterol/HDL Ratio 5 H 07/24/17 0325: Troponin I 0.03 07/24/175: Anion Gap 11, Estimated GFR > 60, BUN/Creatinine Ratio 13.6, D-Dimer High Sensitivty < 200, CBC w Diff NO MAN DIFF REQ, RBC 5.23, MCV 84.3, MCH 28.3, MCHC 33.6, RDW 14.5, MPV 9.6, Gran % 64.6, Lymphocytes % 25.2, Monocytes % 7.8, Eosinophils % 2.1, Basophils % 0.3, Absolute Granulocytes 6.1, Absolute Lymphocytes 2.4, Absolute Monocytes 0.7 H, Absolute Eosinophils 0.2, Absolute Basophils 0 07/23/172009: Anion Gap 12, Estimated GFR > 60, BUN/Creatinine Ratio 13.3, Glucose 165 H, Hemoglobin A1c Pending, Calcium 10.2, Total Bilirubin 0.6, Direct Bilirubin 0.3, AST 25, ALT 48, Alkaline Phosphatase 61, Troponin I 0.02, Total Protein 7.3, Albumin 4.5, Triglycerides 322 H, Cholesterol 202 H, LDL Cholesterol, Calc 100 , HDL Cholesterol 38 L, Cholesterol/HDL Ratio 5 H, Amylase 50, Lipase 155, TSH 2.290, Free T4 1.41, CBC w Diff NO MAN DIFF REQ, RBC 5.64, MCV 83.6, MCH 28.7, MCHC 34.3, RDW 14.1, MPV 10.1, Gran % 65.3, Lymphocytes % 24.2, Monocytes % 7.6, Eosinophils % 2.5, Basophils % 0.4, Absolute Granulocytes 5.8, Absolute Lymphocytes 2.2, Absolute Monocytes 0.7 H, Absolute Eosinophils 0.2, Absolute Basophils 0 Assessment/Plan Assessment/Plan Assessment: 1. Hypertensive urgency 2. Medication noncompliance 3. Mild hyperglycemia 4. Hyperlipidemia 5. Abnormal ECG with right bundle-branch block and nonspecific ST-T changes Recommendations: -Today, the patient's blood pressure remains significantly elevated but is improved since admission. His systolic pressure is ranging between 160-180. -For now, I would continue his current medications of labetalol 200 mg twice a day and lisinopril was increased to 20 mg daily this morning.. Continue to monitor blood pressure over the next 24 hours. -Reassess later this afternoon and, if necessary, consider increasing labetalol to 300 mg twice a day -Echocardiogram shows mild left ventricular hypertrophy with normal left ventricular function and no significant valvular heart disease. -Please check a fasting lipid profile. -At some point, the patient would benefit from further baseline cardiac evaluation as an outpatient. Continue telemetry? Yes
[2017-07-25 14:29] VITALS: BP 170/110
[2017-07-25 18:00] VITALS: BP 190/122
--- NOTE | 2017-07-25 18:37 | ECHOCARDIOGRAM REPORT ---
LUPILLO ESCALERA Age: 46 : 1970 Gender: M Exam Date: 07/25/2017 08:56 Exam Location: [place] Ht (in): 72 Wt (lb): 250 BSA: 2.44 BP: 176 / 110 Ordering Physician: Damien Pena MD Referring Physician: Milagros Lovell MD Technologist: Carrie Atkins [facility] Room Number: 174-01 Indications: HYPERTENSION Rhythm: Sinus Technical Quality: Fair FINDINGS Left Ventricle Normal size left ventricle. No obvious regional wall motion abnormalities. Left ventricular wall thickness increased. Normal left ventricular ejection fraction estimated at 55-60%. Right Ventricle Normal right ventricular size and function. Right Atrium Normal right atrial size. Left Atrium Mild left atrial dilatation. Mitral Valve Mild mitral regurgitation. Aortic Valve Trileaflet aortic valve. Focal thickening of the aortic valve cusps. No aortic stenosis. No aortic regurgitation. Tricuspid Valve Tricuspid valve not well visualized, grossly normal. Mild tricuspid regurgitation. Right ventricular systolic pressure estimated at 22 mmHg. Pulmonic Valve Structurally normal pulmonic valve. Pericardium No pericardial effusion. Great Vessels Normal size aortic root and proximal ascending aorta. CONCLUSIONS 1. This was a technically difficult study 2. Mild aortic sclerosis is present with no valvular stenosis or insufficiency. 3. Mild thickening of the mitral leaflets is present with mild mitral insufficiency and mild left atrial enlargement. 4. No significant pericardial fluid was detected on the study. 5. The left ventricular chamber size is normal with mild concentric hypertrophy and a normal ejection fraction with no resting wall motion abnormalities. 6. Right heart structures are grossly normal. Mild tricuspid insufficiency is present with no evidence of pulmonary hypertension. 7. No prior study was available for comparison. Milagros Lovell M.D. (Electronically Signed) Final Date: 25 July 2017 18:37 MEASUREMENTS (Male / Female) Normal Values 2D ECHO LV Diastolic Diameter PLAX 5.0 cm 4.2 - 5.9 / 3.9 - 5.3 cm LV Systolic Diameter PLAX 3.0 cm 2.1 - 4.0 cm LV Fractional Shortening PLAX 40.0 % 25 - 46 % LV Ejection Fraction 2D Teich 70.4 % IVS Diastolic Thickness 1.4 cm LVPW Diastolic Thickness 1.4 cm LV Relative Wall Thickness 0.6 RV Internal Dim ED PLAX 2.6 cm 1.9 - 3.8 cm LVOT Diameter 2.2 cm Aortic Root Diameter 3.1 cm LA Systolic Diameter LX 3.9 cm 3.0 - 4.0 / 2.7 - 3.8 cm LA Volume 57.0 cm 18 - 58 / 22 - 52 cm Ascending Aorta Diameter 3.6 cm DOPPLER AV Peak Velocity 124.0 cm/s AV Peak Gradient 6.2 mmHg AV Mean Velocity 92.9 cm/s AV Mean Gradient 4.0 mmHg AV Velocity Time Integral 26.3 cm LVOT Peak Velocity 116.0 cm/s LVOT Peak Gradient 5.4 mmHg LVOT Mean Velocity 83.2 cm/s LVOT Mean Gradient 3.0 mmHg LVOT Velocity Time Integral 23.0 cm LVOT Stroke Volume 87.4 cm AV Area Cont Eq vti 3.3 cm AV Area Cont Eq pk 3.6 cm MV Peak Velocity 106.0 cm/s MV Peak Gradient 4.5 mmHg MV Mean Velocity 68.8 cm/s MV Mean Gradient 2.0 mmHg Mitral E Point Velocity 96.3 cm/s Mitral A Point Velocity 93.8 cm/s Mitral E to A Ratio 1.0 MV PHT Velocity 113.0 cm/s MV Deceleration Gilmer 467.0 cm/s MV Pressure Half Time 72.6 ms MV Area PHT 3.0 cm MV Deceleration Time 182.0 ms TR Peak Velocity 202.0 cm/s TR Peak Gradient 16.3 mmHg Right Atrial Pressure 5.0 mmHg Pulmonary Artery Systolic Pressu 21.3 mmHg Right Ventricular Systolic Press 21.3 mmHg PV Peak Velocity 97.9 cm/s PV Peak Gradient 3.8 mmHg PV Mean Velocity 67.3 cm/s PV Mean Gradient 2.0 mmHg PV Velocity Time Integral 20.3 cm LV E' Lateral Velocity 8.9 cm/s Mitral E to LV E' Lateral Ratio 10.9 LV E' Septal Velocity 7.0 cm/s Mitral E to LV E' Septal Ratio 13.7
[2017-07-25 21:50] VITALS: BP 172/110
[2017-07-26 06:42] VITALS: BP 180/120
--- NOTE | 2017-07-26 07:12 | PN- Housestaff ---
Patrick COSME,[facility] 07/26/17 0712: Subjective Follow-up For: Hypertensive urgency Tele-Events Since Last Visit: Normal sinus rhythm Heart rate 60-75. Subjective: Patient lying comfortably in bed, denies any active complaints. Review of Systems Constitutional: Reports: no symptoms. EENTM: Reports: no symptoms. Cardiovascular: Reports: no symptoms. Respiratory: Reports: no symptoms. Gastrointestinal: Reports: no symptoms. Genitourinary: Reports: no symptoms. Musculoskeletal: Reports: no symptoms. Skin: Reports: no symptoms. Neurological/Psychological: Reports: no symptoms. Hematologic/Endocrine: Reports: no symptoms. Immunologic/Allergic: Reports: no symptoms. Objective Last 24 Hrs of Vital Signs/I&O Vital Signs Date Time Temp Pulse Resp B/P B/P Pulse O2 O2 Flow FiO2 Mean Ox Delivery Rate 07/26 1336 144/90 07/26 1336 97.7 74 18 142/86 96 Room Air 07/26 1136 69 170/120 07/26 0859 76 180/120 07/26 0859 76 180/120 07/26 0642 97.7 76 20 180/120 96 Room Air 07/25 2150 98.1 71 18 172/110 96 Room Air 07/25 2055 70 172/110 07/25 1800 190/122 07/25 1619 70 210/130 Intake & Output 07/26 1600 07/26 0800 07/26 0000 Intake Total 560 Output Total 600 Balance -40 Intake, IV 10 Intake, Oral 550 Output, Urine 600 Physical Exam General Appearance: Alert, Oriented X3, Cooperative Skin: No Rashes, No Breakdown Cardiovascular: Regular Rate, Normal S1, Normal S2 Lungs: Clear to Auscultation, Normal Air Movement Abdomen: Normal Bowel Sounds, Soft, No Tenderness Neurological: Normal Speech, Strength at 5/5 X4 Ext, Normal Tone, Sensation Intact, Cranial Nerves 3-12 NL Extremities: No Clubbing, No Cyanosis, No Edema, Normal Pulses Current Medications: Current Medications Sig/Afshin Start time Last Medication Dose Route Stop Time Status Admin Enoxaparin Sodium 40 MG DAILY 07/24 1000 DCD 07/26 SC 0900 Labetalol HCl 300 MG BID 07/25 2200 DCD 07/26 PO 0859 Labetalol HCl 100 MG ONCE ONE 07/25 1600 DC 07/25 PO 07/25 1601 1619 Labetalol HCl 200 MG BID 07/24 1000 DC 07/25 PO 0854 Lisinopril 20 MG DAILY 07/26 1000 DC PO Lisinopril 40 MG DAILY 07/26 1000 DCD 07/26 PO 0859 Assessment/Plan Assessment: Patient is a 46-year-old male with a PMH significant for hypertension but has been off of medication for over a year, was on ramipril previously. He was completely asymptomatic, and has not established medical care with a PCP or hospitality associate in the [place]. Problem list #Hypertensive urgency Plan -Labetalol was increased to 300 mg twice daily and lisinopril 20 mg daily yesterday evening because of continuously elevated blood pressure. - Blood pressure this morning was 184/120, lisinopril was further increased to 40 mg daily after which the blood pressure came down to 144/90. - Echocardiogram showed ejection fraction 55-60% with no regional wall motion abnormalities. - Patient will be discharged home on current antihypertensive medications with outpatient follow-up with cardiology. DVT prophylaxis: GISELA Gaffney CODE STATUS: Full code Problem List: 1. Hypertensive urgency Pain Ratin Pain Location: None Pain Goal: Remain pain free Pain Plan: None Tomorrow's Labs & Rationales: None Darian COSME,Marita 07/26/17 1151: Attending MD Review Statement Attending Statement Attending MD Statement: examined this patient, discuss w/resident/PA/COMMUNICATION TECHNICIAN, agreed w/resident/PA/COMMUNICATION TECHNICIAN, reviewed EMR data (avail), discussed with nursing, discussed with case mgmt, amended to note Attending Assessment/Plan: Patient seen and examined. Resting comfortably and not in acute distress. No issues overnight. 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 Blood pressure remains elevated particularly his diastolic pressures. He has no complaints this morning. On examination heart sounds are regular. Lungs are clear bilaterally. He has no peripheral edema. Lisinopril dose has been increased to 40 mg this morning. He is continued on labetalol 300 mg twice a day. We will recheck his blood pressure later on today. If his systolic blood pressure improves below 100 she will be discharged today with recommendations to follow-up with his primary care provider later on this week. blood pressure later on today. If his systolic blood pressure improves below 100 she will be discharged today with recommendations to follow-up with his primary care provider later on this week.
--- NOTE | 2017-07-26 11:11 | PN- Cardiology ---
Subjective Subjective: The patient reports that he is feeling well. No chest pain. No shortness of breath. No palpitations. No diaphoresis. Objective Vital Signs and I&Os Vital Signs Date Time Temp Pulse Resp B/P B/P Pulse O2 O2 Flow FiO2 Mean Ox Delivery Rate 07/26 0859 76 180/120 07/26 0859 76 180/120 07/26 0642 97.7 76 20 180/120 96 Room Air 07/25 2150 98.1 71 18 172/110 96 Room Air 07/25 2055 70 172/110 07/25 1800 190/122 07/25 1619 70 210/130 07/25 1429 98.1 74 18 170/110 95 Room Air 07/25 1308 174/104 Intake & Output 07/26 1600 07/26 0800 07/26 0000 07/25 1600 07/25 0000 Intake Total 600 110 680 Output Total Balance 600 110 680 Intake, IV 10 Intake, Oral 600 100 680 Patient 250 lb Weight Physical Exam: Gen: NAD HEENT: normal Lungs: clear to auscultation, normal resp. effort Heart: RRR, S1, S2, 1/6 systolic murmur Abdomen: Soft, nontender, no masses Extremities: No clubbing, cyanosis, or edema. Neuro: Alert and oriented x 3, cranial nerves intact Current Medications: Current Medications Sig/Afshin Start time Last Medication Dose Route Stop Time Status Admin Enoxaparin Sodium 40 MG DAILY 07/24 1000 AC 07/26 SC 0900 Labetalol HCl 300 MG BID 07/25 2200 AC 07/26 PO 0859 Labetalol HCl 100 MG ONCE ONE 07/25 1600 DC 07/25 PO 07/25 1601 1619 Labetalol HCl 200 MG BID 07/24 1000 DC 07/25 PO 0854 Lisinopril 20 MG DAILY 07/26 1000 DC PO Lisinopril 40 MG DAILY 07/26 1000 AC 07/26 PO 0859 Results Last 48 Hrs of Labs/Mics: Laboratory Tests 07/25/17 0625: Triglycerides 114, Cholesterol 160, LDL Cholesterol, Calc 105, HDL Cholesterol 33 L, Cholesterol/HDL Ratio 5 H Assessment/Plan Assessment/Plan Assessment: 1. Hypertensive urgency 2. Medication noncompliance 3. Mild hyperglycemia 4. Hyperlipidemia 5. Abnormal ECG with right bundle-branch block and nonspecific ST-T changes Plan: * Lisinopril increased to 40 mg daily with this morning's dose. * Continue labetalol. * Okay for discharge from cardiac standpoint later in the afternoon if stable * Follow up in the office with Dr. Lovell within 1 week per Continue telemetry? Yes
[2017-07-26] MEDS ORDERED: LABETALOL HCL300 M1 PO ×2 (11:25→13:44)
[2017-07-26] MEDS ORDERED: LISINOPRIL40 M1 PO ×2 (11:25→13:44)
[2017-07-26 11:36] VITALS: BP 170/120
[2017-07-26 13:36] VITALS: BP 142/86; BP 144/90
--- NOTE | 2017-07-27 10:49 | Discharge Summary ---
Visit Information Visit Dates Admission Date: 07/25/17 Discharge Date: 07/26/17 Hospital Course Course Attending Physician: Marita Farmer MD Primary Care Physician: Patient Has No Primary Care Dr Hospital Course: Patient is a 46-year-old male with a PMH significant for hypertension but has been off of medication for over a year, was on ramipril previously. He was completely asymptomatic, and has not established medical care with a PCP or expeller operator in the [facility]. Patient was admitted to the telemetry floor and following issue was addressed; # Hypertensive urgency Patient was initially started on Labetalol 200 mg twice daily and lisinopril 10mg daily. Cardiology was consulted and echocardiogram was obtained which showed an ejection fraction 55-60% with no regional wall motion abnormalities. His blood pressure remained uncontrolled initially(systolic in 190s and diastolic above 100) but gradually came down to 144/90 at the time of discharge after labetalol was increased to 300 mg twice daily and lisinopril 40 mg daily. Patient remained completely asymptomatic during the entire hospital stay. Patient will be discharged home on the above-mentioned antihypertensive medications with outpatient follow-up with primary care physician and the expeller operator. DVT prophylaxis: Lovekarox,ALPS CODE STATUS: Full code Allergies: Coded Allergies: No Known Allergies (07/23/17) Significant Procedures: US-ABD/PELV ORGAN DOPPLER IMPRESSION: No sonographic evidence of renal artery stenosis. ECHOCARDIOGRAM; CONCLUSIONS 1. This was a technically difficult study 2. Mild aortic sclerosis is present with no valvular stenosis or insufficiency. 3. Mild thickening of the mitral leaflets is present with mild mitral insufficiency and mild left atrial enlargement. 4. No significant pericardial fluid was detected on the study. 5. The left ventricular chamber size is normal with mild concentric hypertrophy and a normal ejection fraction with no resting wall motion abnormalities. 6. Right heart structures are grossly normal. Mild tricuspid insufficiency is present with no evidence of pulmonary hypertension. 7. No prior study was available for comparison. Disposition Summary Disposition Principal Diagnosis: Hypertensive urgency Additional Diagnosis: Hypertensive urgency Discharge Disposition: home or self care Discharge Instructions General Discharge Information Code Status: Full Code Patient's Diet: Regular Patient's Activity: As tolerated Follow-Up Instructions/Appts: Please follow-up with your PCP and expeller operator within a week after discharge. Medications at Discharge Discharge Medications: Stop taking the following medications: Ramipril (Altace) 5 MG CAPSULE ORAL DAILY Start taking the following new medications: Labetalol HCl (Labetalol HCl) 300 MG TABLET 1 Tablet ORAL TWICE DAILY Qty = 60 No Refills Instructions: . Comments: Last Taken:07/26/17 Time:929 Lisinopril (Lisinopril) 40 MG TABLET 1 Tablet ORAL DAILY Qty = 30 No Refills Instructions: . Comments: Last Taken:07/26/17 Time:929 Copies To: Antoni COSME,Antoni; Migel Lovell MD
== END 2017-07-26 14:30 | DRG 305 ==
LOC: ERH 19:35 → ERHI 22:12 → ENRESERV 22:31 → ENTRNSPT 22:58 → 1NO 07-24 00:23 → CMPTRNSPT 07-24 09:14 → 1NO 07-24 14:23 → ENPENDDIS 07-26 13:45 → 1NO 07-26 14:30
PROVIDERS: Internal Medicine; Pediatrics; Student in an Organized Health Care Education/Training Program
DX: I16.0 Hypertensive urgency (principal); E78.5 Hyperlipidemia, unspecified; I45.10 Unspecified right bundle-branch block; S61.210A Laceration without foreign body of right index finger without damage to nail, initial encounter; Z91.14 Patient's other noncompliance with medication regimen; I51.7 Cardiomegaly; R00.0 Tachycardia, unspecified; Z82.49 Family history of ischemic heart disease and other diseases of the circulatory system; R73.9 Hyperglycemia, unspecified; R94.31 Abnormal electrocardiogram [ECG] [EKG]; Y99.0 Civilian activity done for income or pay
CPT/HCPCS: 1NSP; 6020; 36415; 82436; 93005; 93010; 93306; 96374; 96375; 96376; 99291; G0378; J1650; J7040; Q2036